=== PATIENT | male | born 1965 | race Caucasian/White ===

== ENCOUNTER 2021-07-30 09:12 | Outpatient (REF) | payer BC, SELFPAY | END 2021-07-30 09:13 | disposition home or self-care (01) | LOC: HO.BBR 09:12 | PROVIDERS: Visit Provider Internal Medicine Hematology & Oncology | DX: D75.1 Secondary polycythemia (principal) | CPT/HCPCS: 85018; 99195 ==

== ENCOUNTER 2021-10-27 11:20 | Outpatient (REF) | payer BC, SELFPAY | END 2021-10-27 11:21 | disposition home or self-care (01) | LOC: HO.BBR 11:20 | PROVIDERS: Visit Provider Internal Medicine Hematology & Oncology | DX: D75.1 Secondary polycythemia (principal) | CPT/HCPCS: 85014; 85018; 99195 ==

== ENCOUNTER 2021-12-01 11:07 | Outpatient (REF) | payer BC, SELFPAY | END 2021-12-01 11:08 | disposition home or self-care (01) | LOC: HO.BBR 11:07 | PROVIDERS: Visit Provider Internal Medicine Hematology & Oncology | DX: D75.1 Secondary polycythemia (principal) | CPT/HCPCS: 85018; 99195 ==

== ENCOUNTER 2025-01-17 10:41 | Outpatient (REF) | payer BC, SELFPAY ==
--- OUTSIDE RECORDS SUMMARY | 2025-01-17 11:26 | XMS_ITS | Clinical Summary ---
Author Organization [facility] [address] [facility] Address [address] [place] [address] Phone Care Team Providers Care Chairman & Chief Executive Officer Name Role Phone McfarlaneJimenez Primary Care Provider Allergies No known active allergies Social History Tobacco Use Types Packs/Day Years Used Date Smoking Tobacco: Never Assessed Sex and Gender Information Value Date Recorded Sex Assigned at Not on file Legal Sex Male 7:01 AM EST Gender Identity Not on file Sexual Orientation Not on file Plan of Treatment Health Maintenance Due Date Last Done Comments DTaP,Tdap,and Td Vaccines (1 - Tdap) 1983 Pneumococcal Vaccine: 50+ Ye ars (1 of 1 - PCV) 2014 Zoster Vaccines (1 of 2) 2014 COVID-19 Vaccine ( - 2023-2 5 season) 2024 Cholesterol Screening (Lipid Panel) 04/28/2024 HIV Screening 04/28/2024 Hepatitis C Screening 04/28/2024 Social Influencers of Health Screening 04/28/2024 Depression Screening 06/14/2024 Colorectal Cancer Screening: FIT-DNA (Cologuard) 01/09/2025 01/09/2022 Influenza Vaccine (#1) 2025 RSV Immunization Adult Patie nts (1 - 1-dose 75+ series) 2039 HIB Vaccines Aged Out No longer eligi ble based on patient's age to complete this topic HPV Vaccines Aged Out No longer eligi ble based on patient's age to complete this topic Hepatitis A Vaccines Aged Out No long er eligible based on patient's age to complete this topic Hepatitis B Vaccines Aged Out No long er eligible based on patient's age to complete this topic IPV Vaccines Aged Out No longer eligi ble based on patient's age to complete this topic MMR Vaccines Aged Out No longer eligi ble based on patient's age to complete this topic Meningococcal ACWY Vaccine Aged Out N o longer eligible based on patient's age to complete this topic Meningococcal B Vaccine Aged Out No l onger eligible based on patient's age to complete this topic RSV Immunization Patients Un mariah 20 months Aged Out No longer eligible b ased on patient's age to complete this topic Varicella Vaccines Aged Out No longer eligible based on patient's age to complete this topic Insurance [facility] ([facility]) Care Teams Chairman & Chief Executive Officer Relationship Specialty Start Date End Date Jimenez Mcfarlane FNP [address] [place] [address] [address] EM[place] [id number] PCP - General Nurse Practitioner 04/28/24
--- OUTSIDE RECORDS SUMMARY | 2025-01-17 11:26 | XMS_ITS ---
Author Name [facility] Organization Unknown Care Team Organization Name Specialty Phone Email Start Date End Da ирина [facility] 04/28/2024
== END 2025-01-17 10:42 | disposition home or self-care (01) ==
LOC: HO.BBR 10:41
PROVIDERS: PCP Nurse Practitioner Family; Visit Provider Hospitalist
DX: Z13.89 Encounter for screening for other disorder (principal)
CPT/HCPCS: 85018; 99195